=== PATIENT | male | born 1990 | race Hispanic/Latino ===

== ENCOUNTER 2025-02-12 04:10 | Inpatient (IN) | payer SELFPAY ==
[~2025-02-12] VITALS: Ht 175.3 cm; Wt 84.5 kg
--- NOTE | 2025-02-12 04:41 | NUR ---
COULD NOT PROVIDE A URINE AT THIS TIME.
[2025-02-12 04:45] LABS: IMMATURE GRANULOCYTE ABSOLUTE 0.06 K/uL (0-1); NUCLEATED RED BLOOD CELLS 0.0 % (0.0-0.19); PLATELET COUNT (AUTO) 411 K/uL (130-400); RED BLOOD CELL COUNT(AUTO) 6.22 MIL/uL (4.50-6.20); RED CELL DISTRIBUTION WIDTH 12.9 % (11.0-15.5); WHITE BLOOD COUNT (AUTO) 13.2 K/uL (4.8-10.8)
[2025-02-12] MEDS: 0.9%NACL 1000ML 1,000 ML IV ONE ×2 (04:51→06:18)
[2025-02-12] MEDS: FAMOTIDINE 20MG VIAL IV ONE (05:05)
[2025-02-12 05:09] LABS: ASPARTATE AMINOTRANSFERASE 27.0 U/L (10-37); CREATININE 2.9 mg/dL (0.5-1.3); GLOMERULAR FILTR. RATE CALC 28.0 mL/min (>90); GLUCOSE,RANDOM 132.0 mg/dL (70-105); SODIUM SERUM 125.0 mmol/L (136-145); TOTAL PROTEIN, SERUM 9.5 g/dL (6.0-8.3)
[2025-02-12 05:20] LABS: CREATINE KINASE, TOTAL 845.0 U/L (21-232); UREA NITROGEN, BLOOD 82.0 mg/dL (7-18)
--- NOTE | 2025-02-12 05:43 | NUR ---
PT CARE ASSUMED AT THIS TIME
--- NOTE | 2025-02-12 05:46 | ERN ---
ED Note History of Present Illness Stated Complaint: CP. N/V Chief Complaint: Chest Pain Time Seen by MD: 04:24 Dictation: This is a 34-year-old male who comes in with 3 day history of severe nausea vomitings. Stated that every time he vomited his chest would hurt. No fever chills or rigors all the symptoms started on Wednesday. No travel but he just came back from working in the [employer]. No other family members are sick no new pets at home. No blood in the stool or emesis Temperature 97.7 pulse 105 respirations 20 blood pressure 139/99 with a pulse oximetry of 99% on room air Allergies: Coded Allergies: No Known Allergies (Unverified Allergy, Unknown, 02/12/25) Home Meds No Active Prescriptions or Reported Meds Past Medical History Past Medical History: No Pertinent History Surgical History: None Family History: Negative Social History: Drugs (Marijuana, amphetamines and cocaine), ETOH RN Note Reviewed/Agreed w/PFSH: Yes Review of System Dictation Constitutional: Negative for fever,chills, and weight loss Eyes: Negative for injury, pain,redness, and discharge ENT: Negative for injury,pain or swelling Cardiovascular: Positive for chest pain, denies palpitations, and edema Respiratory: Negative for shortness of breath, cough, and wheezing, Abdomen/GI: Positive for abdominal pain, nausea, vomiting, denied diarrhea, and constipation Back: Negative for injury and pain : Negative for injury, bleeding and discharge MS/Extremity: Negative for injury and deformity Skin: Negative for rash, and discoloration Neuro: Negative for headache, weakness, numbness, tingling, and seizure Psych: Negative for suicide ideation, homicidal ideation, and hallucinations Initial Vital Sign VS Vital Signs Date Time Temp Pulse Resp B/P (MAP) Pulse Ox O2 Delivery O2 Flow Rate FiO2 02/12/25 04:12 97.7 105 20 139/99 99 Room Air 02/12/25 05:10 0 21 Physical Exam Dictation General: awake, alert, NAD looks sick Head/Face: Normocephalic, atraumatic Eyes: PERRL, EOMI, vision at baseline ENT: oral cavity clear, TMs clear, no signs of infection mucous membranes are dry Neck: Trachea midline, supple, no nuchal rigidity Cardiovascular: RRR, normal S1/S2, No MRGs, no JVD Respiratory: CTAB, no respiratory distress, No rales or wheezes Abdomen: Soft, non-tender, non-distended, normal bowel sounds, no guarding or rebound. Skin: Warm, dry, normal turgor, no rash MS/Extremity: Pulses equal, no cyanosis, neurovascular intact, FROM Neuro: COAx4, GCS 15, strength 5/5, CN 2-12 intact, normal cerebellar exam, normal gait, Psych: Normal behavior, mood, and affect normal Extremities-trace edema without any palpable cords, Homans sign is negative Results (Laboratory/Radiology) Laboratory/Radiology Laboratory Tests Test 02/12/25 04:36 02/12/25 05:41 02/12/25 06:27 White Blood Count 13.2 K/uL (4.8-10.8) H Red Blood Count 6.22 MIL/uL (4.50-6.20) H Hemoglobin 18.5 g/dL (14.0-18.0) H Hematocrit 50.6 % (42-54) Mean Corpuscular Volume 81.4 fL (79-99) Mean Corpuscular Hemoglobin 29.7 pg (27.0-33.0) Mean Corpuscular Hemoglobin Concent 36.6 g/dL (32.0-36.0) H Red Cell Distribution Width 12.9 % (11.0-15.5) Platelet Count 411 K/uL (130-400) H Mean Platelet Volume 10.6 fL (7.5-10.5) H Immature Granulocyte % (Auto) 0.5 % (0-1) Neutrophils (%) (Auto) 77.2 % (40.0-77.0) H Lymphocytes (%) (Auto) 11.4 % (21.0-51.0) L Monocytes (%) (Auto) 10.4 % (3.0-13.0) Eosinophils (%) (Auto) 0.1 % (0.0-8.0) Basophils (%) (Auto) 0.4 % (0.0-5.0) Neutrophils # (Auto) 10.2 K/uL (1.8-7.7) H Lymphocytes # (Auto) 1.5 K/uL (1.0-4.8) Monocytes # (Auto) 1.4 K/uL (0.1-1.0) H Eosinophils # (Auto) 0.01 K/uL (0.00-0.70) Basophils # (Auto) 0.05 K/uL (0.00-0.20) Absolute Immature Granulocyte (auto 0.06 K/uL (0-1) Nucleated Red Blood Cells 0.0 % (0.0-0.19) Red Blood Cell Morphology See comments Sodium Level 125 mmol/L (136-145) L Potassium Level 3.2 mmol/L (3.5-5.1) L Chloride Level 85 mmol/L (101-111) *L Carbon Dioxide Level 22 mmol/L (21-32) Blood Urea Nitrogen 82 mg/dL (7-18) *H Creatinine 2.9 mg/dL (0.5-1.3) H Glomerular Filtration Rate Calc 28 mL/min (>90) Random Glucose 132 mg/dL (70-105) H Total Calcium 9.8 mg/dL (8.5-10.1) Total Bilirubin 2.3 mg/dL (0.2-1.0) H Direct Bilirubin 0.4 mg/dL (0.0-0.3) H Aspartate Amino Transf (AST/SGOT) 27 U/L (10-37) Alanine Aminotransferase (ALT/SGPT) 47 U/L (12-78) Alkaline Phosphatase 97 U/L (50-136) Total Creatine Kinase 845 U/L (21-232) *H Troponin I High Sensitivity 12 ng/L (4-75) Total Protein 9.5 g/dL (6.0-8.3) H Albumin 4.7 g/dL (3.5-5.0) Lipase 156 U/L (16-77) H Urine Color YELLOW (YELLOW) Urine Appearance CLOUDY (CLEAR) H Urine pH 6.0 (5.0-8.0) Urine Specific [place] 1.022 (1.001-1.031) Urine Protein 50 mg/dL (NEGATIVE) H Urine Glucose (UA) NEGATIVE mg/dL (NEGATIVE) Urine Ketones 20 mg/dL (NEGATIVE) H Urine Occult Blood MODERATE (NEGATIVE) H Urine Nitrate NEGATIVE (NEGATIVE) Urine Bilirubin NEGATIVE mg/dL (NEGATIVE) Urine Urobilinogen 0.2 mg/dL (0.2-1.0) Urine Leukocyte Esterase NEGATIVE Renae/uL Urine RBC 2-5 /HPF (0-1) H Urine WBC 11-25 /HPF (0-1) H Urine Squamous Epithelial Cells RARE /HPF (0-2) Urine Bacteria FEW /HPF (None Seen) Urine Hyaline Casts 6-10 /LPF (0-1 /LPF) H Urine Opiates Screen NEGATIVE (NEGATIVE) Urine Barbiturates Screen NEGATIVE (NEGATIVE) Urine Phencyclidine Screen NEGATIVE (NEGATIVE) Urine Amphetamines Screen POSITIVE (NEGATIVE) H Urine Benzodiazepines Screen NEGATIVE (NEGATIVE) Urine Cocaine Screen POSITIVE (NEGATIVE) H Urine Marijuana (THC) Screen POSITIVE (NEGATIVE) H Lactic Acid Level 2.4 mmol/L (0.8-2.5) Labs Reviewed?: Yes EKG Comment: Twelve lead EKG done on 02/12/2025 at 4:17 a.m. showed a heart rate of 84, NC interval 160, QRS 110, QT/QTC 454/537. Impression normal sinus rhythm with a left atrial enlargement, right bundle branch partial, prolonged QT EKG rhythm strip shows a normal sinus rhythm with no acute STT wave changes Interpreted by ER MD Dr. [place] ED Course ED Course Orders Procedure Category Date Status Time Cbc With Differential LAB 02/12/25 Complete 04:22 Basic Metabolic Panel LAB 02/12/25 Complete 04:22 Troponin I High LAB 02/12/25 Complete Sensitivity 04:22 Chest 1vw RAD 02/12/25 Resulted 04:22 12 Lead Ekg Tracing- EKG 02/12/25 Logged Technical 04:22 Drug Screen Urine LAB 02/12/25 Complete 04:25 Urinalysis Profile LAB 02/12/25 Complete 04:25 Creatine Kinase, Total LAB 02/12/25 Complete 04:36 Hepatic Function Panel LAB 02/12/25 Complete 04:36 Lipase LAB 02/12/25 Complete 04:36 Ondansetron 4mg Inj PHA 02/12/25 Complete (Zofran 4mg Inj) 05:00 0.9%Nacl 1000ml (Ns PHA 02/12/25 Complete 1000ml) 05:00 Famotidine 20mg Vial PHA 02/12/25 Complete (Pepcid 20mg Vial) 05:00 Ketorolac PHA 02/12/25 Complete Tromethamine 15mg/Ml 05:00 Influenza Type A & B, LAB 02/12/25 In Process Rapid 05:55 Covid19 (Sars Antigen LAB 02/12/25 In Process Rapid) 05:55 Ct Abdomen/Pelvis W/O CT 02/12/25 Taken Contrast 05:55 Potassium Chloride PHA 02/12/25 Complete 20meq/10ml (Kcl 20meq 06:00 0.9%Nacl 1000ml (Ns PHA 02/12/25 Complete 1000ml) 06:00 Lactic Acid LAB 02/12/25 Complete 05:57 Blood Cult HENRY 02/12/25 Logged 05:57 Zosyn 3.375gm+Ns 50ml PHA 02/12/25 Complete (Zosyn 3.375gm+Ns 06:00 Potassium Chloride PHA 02/12/25 Complete 20meq/100ml ([place] 06:14 Potassium Chloride PHA 02/12/25 In Process 20meq/100ml ([place] 06:30 Culture Urine HENRY 02/12/25 In Process 06:28 Edm Admit Bridge Order ADM 02/12/25 Verified 06:56 Current Medications Medications (Trade) Dose Ordered Sig/Anmol Route PRN Reason Start Time Stop Time Status Last Admin Dose Admin Famotidine (Pepcid 20mg Vial) 20 mg ONCE ONCE IV 02/12/25 05:00 02/12/25 05:01 DC 02/12/25 05:05 Ketorolac Tromethamine (toRADol) 15 mg ONCE ONCE IV 02/12/25 05:00 02/12/25 05:01 DC 02/12/25 05:05 Ondansetron HCl (zoFRAN 4MG INJ) 4 mg ONCE ONCE IVP 02/12/25 05:00 02/12/25 05:01 DC 02/12/25 04:51 Piperacillin Sod/ Tazobactam Sod (Zosyn 3.375gm+NS 50ml) 3.375 gm ONCE ONCE IV 02/12/25 06:00 02/12/25 06:09 DC 02/12/25 06:18 Potassium Chloride 10 meq/ Sodium Chloride 50 ml @ 50 mls/hr PROTOCOL IV 02/12/25 06:00 02/12/25 06:16 DC Potassium Chloride 100 ml @ 50 mls/hr ONCE ONCE IV 02/12/25 06:30 02/12/25 08:29 02/12/25 06:21 Potassium Chloride 100 ml @ As Directed STK-MED ONCE IV 02/12/25 06:14 02/12/25 06:14 DC Sodium Chloride 1,000 ml @ 0 mls/hr ONCE ONCE IV 02/12/25 06:00 02/12/25 06:08 DC 02/12/25 06:18 Sodium Chloride 1,000 ml @ 0 mls/hr Q0M ONCE IV 02/12/25 05:00 02/12/25 05:01 DC 02/12/25 04:51 Vital Signs Date Time Temp Pulse Resp B/P (MAP) Pulse Ox O2 Delivery O2 Flow Rate FiO2 02/12/25 05:52 98.2 73 18 150/96 98 Room Air* 0 21 02/12/25 05:10 72 18 98 Room Air* 0 21 02/12/25 04:12 97.7 105 20 139/99 99 Room Air We will perform diagnostic labs, advanced imaging and administer medications according to the patient's complaint. Once the results are available, will review and personally interpreted the labs to rule out any acute life- threatening emergency the trach require immediate intervention and treatment. I will then re-evaluate the patient after treatment and diagnostic exams have return to determine whether the patient requires any further testing, can safely be discharged home or need further admission to hospital for additional treatment and evaluation. Aggressive hydration initiated antiemetic and symptomatic management until labs are resulted 5:00 a.m. CBC showed a white count of 13.2 hemoglobin 18.5 hematocrit 50 platelets 411 6:00 a.m. BNP 7 showed a sodium of 125 chloride 85 potassium 3.2 bicarb 22 BUN and creatinine are 82 and 2.9. Lipase is 156 and total CK is 845 I had a long discussion with the patient and partner about concern for severe dehydration and acute renal failure with a electrolyte abnormalities and it is unclear if this is early pancreatitis or gastroenteritis. I recommended admission to the hospital and serial monitoring of the renal function. Avoid any further nephrotoxic agents. Taylor cultures and empiric antibiotic to cover intra-abdominal infection for the next 24 hours 6:30 a.m. urine drug screen is positive for amphetamines, cocaine and marijuana 6:50 a.m. patient accepted by , hospitalist attending physician for admission and further management Medical Decision Making MDM Differential diagnosis: Gastroenteritis, pancreatitis, hyperemesis syndrome from marijuana and substance abuse, cholecystitis, enterocolitis, food poisoning Rationale: Tests considered and ordered secondary to shared decision making include: labs, ECG and radiology Previous outside records reviewed: Old ER visits. Risk of complication and/or morbidity or mortality of patient management: None Medications-Per medication reconciliation Need for hospitalization: Patient does meet criteria for hospitalization. Need for emergency major/minor surgery: No There are no social concerns with this patient. Prescription drug management Prescriptions will include symptomatic care Patient's prior external medical records from other ER visits were reviewed by me as indicated. Prior testing and results from previous visits were reviewed. Prior tests were taken into account with medical decision making and resource utilization, independent historian/historians were used to obtain complete medical history. I independently interpreted the test that were performed, results were reviewed by me and considered findings on radiology if ordered. Medical management and examination interpretation discussions were had by me with other qualified healthcare professionals as indicated for the patient's care. Problem List Problem List: (1) Gastroenteritis (2) Severe dehydration (3) Acute renal failure (4) Pancreatitis (5) Hyponatremia (6) Hypokalemia (7) Polysubstance abuse DX & DISP Disposition: Inpatient Decision to Admit Time: 06:10 Departure Impression: Primary Impression: Gastroenteritis Additional Impressions: Severe dehydration, Acute renal failure, Pancreatitis, Hyponatremia, Hypokalemia Condition: Stable Scripts No Active Prescriptions or Reported Meds Additional Instructions: Patient was informed of all the diagnostic labs and procedures conducted in the emergency room today and demonstrated understanding of the results. I personally reviewed and interpreted all the diagnostic exams performed in the ER today. The patient will be admitted to the hospital for further treatment and evaluation. Disposition-admit to facility Condition-stable/guarded Course-uncertain at this time Pain status-decreased Assessment-exam unchanged Admission Certification- I certify that the patients status is appropriate and is based on my best clinical judgment and the patient's condition as documented in the medical records Referrals: SELF,REFERRAL (PCP) JESSIKA MADRID MD Feb 12, 2025 05:46
--- NOTE | 2025-02-12 06:01 | HMCIMG ---
EXAM: CR Chest, 1 view CLINICAL HISTORY: Chest pain. COMPARISON: None provided. FINDINGS: The lungs show no infiltrates or other acute findings. The bilateral CP angles are excluded from the image. No large pleural effusion or pneumothorax. The cardiomediastinal silhouette is within normal limits. No acute osseous abnormality. IMPRESSION: No acute cardiopulmonary process is evident. /[place]
--- NOTE | 2025-02-12 06:10 | NUR ---
PATIENT TAKEN TO CT SCAN AT THIS TIME, FAMILY AT BEDSIDE.
[2025-02-12 06:15] LABS: APPEARANCE,URINE CLOUDY (CLEAR); GLUCOSE, URINE (UA) NEGATIVE (NEGATIVE); LEUKOCYTE ESTERASE ,URINE NEGATIVE Leu/uL (NEGATIVE); NITRATE,URINE NEGATIVE (NEGATIVE); OCCULT BLOOD,URINE MODERATE (NEGATIVE)
[2025-02-12 06:16] LABS: ADD UA MICROSCOPIC YES
[2025-02-12 06:18] LABS: SQUAMOUS EPITHELIAL CELL,UR RARE /HPF (0-2)
[2025-02-12] MEDS: ZOSYN 3.375GM +NS 50ML IV ONE (06:18)
[2025-02-12 06:23] LABS: AMPHET/METH SCREEN,URINE POSITIVE (NEGATIVE); BARBITURATE SCREEN, URINE NEGATIVE (NEGATIVE); CANNABINOID SCREEN,URINE POSITIVE (NEGATIVE); COCAINE SCREEN,URINE POSITIVE (NEGATIVE)
[2025-02-12 07:01] LABS: COVID19 (SARS ANTIGEN RAPID) PRESUMPTIVE NEGATIVE (NEGATIVE); INFLUENZA TYPE A Negative For Type A (NEGATIVE); INFLUENZA TYPE B Negative For Type B (NEGATIVE)
--- NOTE | 2025-02-12 07:05 | NUR ---
CARE TRANSFERRED TO CINDY CUELLO
--- NOTE | 2025-02-12 07:18 | EKG ---
[facility] Test Date: 2025-02-12 Test Time: 04:17:12 Pat Name: LATONYA GALLEGOS Department: [facility] Room: 313 Gender: M [employer] Ad[employer]: [id number] : 1990 Requested By: JESSIKA MADRID Order Number: [id number] Reading MD: Efrain Mejia Measurements Intervals [place] Rate: 84 P: 61 OK: 160 QRS: 64 QRSD: 110 T: 43 QT: 454 QTc: 537 Interpretive Statements Sinus rhythm LAE, consider biatrial enlargement Consider anterior infarct Prolonged QT interval No previous ECG available for comparison Electronically Signed On 02-13-2025 07:26:02 CDT by Efrain Mejia Please click the below link to view image of tracing.
--- NOTE | 2025-02-12 07:19 | HMCIMG ---
EXAM: CT Abdomen and Pelvis without V contrast CLINICAL HISTORY: Pain. TECHNIQUE: Thin collimated axial CT images of the abdomen and pelvis were obtained with sagittal and coronal reformatted images also submitted. CT scan is done according to ALARA (As Low As Reasonably Achievable). CONTRAST: None COMPARISON: None. FINDINGS: Unremarkable visualized lung parenchyma. No focal abnormality within the liver,pancreas, spleen, adrenals, or kidneys. Mildly distended gallbladder measuring 7.3 cm and 4.2 cm in the anterior posterior dimension. No wall thickening or radiopaque calculus within. Mild hiatus hernia. Moderate fecal residue in the large bowel loops. There is no obvious bowel wall thickening. Bowel loops are normal in caliber without evidence of obstruction or ileus. The appendix is normal. There is no abnormality within the urinary bladder. Unremarkable reproductive organs. Abdominal and pelvic vessels are patent. No lymphadenopathy. No free fluid. There is no acute osseous abnormality. IMPRESSIONS: Nonspecific distention of the gallbladder. Right upper quadrant ultrasound recommended for further evaluation. /[place]
[2025-02-12] MEDS ORDERED: LACTULOSE 20 GM/30 ML UDCUP PO PRN (07:30)
[2025-02-12] MEDS ORDERED: PHARMACY COMMUNICATION MISC SCH (08:00)
[2025-02-12 08:26] LABS: INR 1.02 (0.85-1.15)
[2025-02-12 08:54] LABS: CREATININE 2.5 mg/dL (0.5-1.3); GLOMERULAR FILTR. RATE CALC 34.0 mL/min (>90); GLUCOSE,RANDOM 109.0 mg/dL (70-105); LDL DIRECT 110.0 mg/dL (0-99); SODIUM SERUM 129.0 mmol/L (136-145)
[2025-02-12 08:59] LABS: UREA NITROGEN, BLOOD 77.0 mg/dL (7-18)
[2025-02-12] MEDS: SODIUM CHLORIDE 3% 500 ML IV ONE (09:43)
[2025-02-12] MEDS: 0.9%NACL 1000ML 1,000 ML IV SCH ×2 (09:47→20:35)
[2025-02-12] MEDS: 0.9%NACL 1000ML 2,000 ML IV ONE (09:47)
--- NOTE | 2025-02-12 09:52 | HMCIMG ---
EXAM: US Abdomen, Right Upper Quadrant. CLINICAL HISTORY: HYPERBILIRUBINEMIA TECHNIQUE: Right upper quadrant sonography performed with image documentation. COMPARISON: None provided. FINDINGS: The liver is unremarkable. Gallbladder: The gallbladder is distended and contains sludge. No gallstones are seen. The gallbladder wall measures 0.3 cm and is not thickened. No pericholecystic fluid noted. Common Bile Duct (CBD): The CBD measures 0.32 cm, within normal limits. No biliary ductal dilatation or choledocholithiasis. Pancreas: Pancreas is visualized and appears within normal limits. No masses or cysts seen. Right Kidney: The right kidney measures 12 x 5 x 6 cm, within normal limits. Corticomedullary differentiation is preserved. No hydronephrosis, masses, or calculi identified. IMPRESSION: Gallbladder sludge. No sonographic evidence of acute cholecystitis. /[place]
--- NOTE | 2025-02-12 10:12 | HP ---
[facility] HISTORY [facility] PHYSICAL Date of Service: Feb 12, 2025 Time of Service: 09:34 HISTORY OF PRESENT ILLNESS: 34 year old male with no significant past medical history presented to ER with complaints of intractable vomiting for past 5days. 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 He denies any accidental spillage of chemicals or exposure to unknown agent. Since ( 5days ago), he has been experiencing severe vomiting, nonbloody, not associated with food intake and not preceded by nausea. He also experiences shortness of breath associated with physical activity and intermittent headache. Vomiting is associated with central chest pain described as burning in nature, 8/10 in intensity. He currently denies shortness of breath and central chest pain. He also denies abdominal pain, seizures, change in mental status, swelling of extremities, dysuria, oliguria, changes in bowel or bladder habits. At the time of presentation, he is alert and oriented. Vitals were temperature 97.7, pulse rate 105, respiratory rate 20 per minute, BP 139/99, SpO2 99% room air Remarkable for WBC 99483, hemoglobin 18.5, hematocrit 50.6, platelet count 411, 25, potassium 3.2, carbon dioxide 22, chloride 85, BUN , creatinine 2.9, GFR 2 8, bilirubin 2.3, CK 845, lipase 156. Chest x-ray showed prominent bilateral interstitial markings. CT abdomen pelvis remarkable for enlarged gallbladder. Abdomen also shows distended gallbladder. Was treated with Zosyn and2 L IV NS bolus dose in the ER Patient is admitted for further evaluation and management of sepsis, acute dehydration causing acute kidney failure, acute hyponatremia. REVIEW OF SYSTEMS CONSTITUTIONAL: Denies fevers, chills, or night sweats. No unintentional weight loss reported. NEUROLOGICAL: Headache present Denies motor weakness, sensory deficit, vertigo/spinning sensation, gait abnormalities, or tremors. ENT: No hearing loss, otalgia, otorrhea, rhinitis, rhinorrhea, hoarseness, or sore throat. CARDIOVASCULAR: Dyspnea on exertion present Denies any exertional angina,, orthopnea, paroxysmal nocturnal dyspnea, palpitations, life-threatening arrhythmias, claudication. PULMONARY: SOB present Denies cough, phlegm/sputum, hemoptysis, pleuritic chest pain. SLEEP: Patient states that he has difficulty to sleep since GASTROINTESTINAL: Denies any type of dysphagia to either liquids or solids. Denies nausea, early satiety, abdominal pain, diarrhea, constipation, or changes in stool consistency or caliber. Denies coffee-ground emesis, hematemesis, hematochezia, or melanotic stools. Positive for vomiting, last bowel movement5 days back GENITOURINARY: Denies frequency, urgency, nocturia, hematuria or incontinence (Storage/Irritative symptoms.) ENDOCRINOLOGIC: Denies polyuria, polydipsia, polyphagia or heat/cold intolerances. HEMATOLOGIC: Denies thrombophilia/previous clots, or coagulopathy/bleeding disorders. ONCOLOGIC: Denies personal history of malignancy. DERMATOLOGIC: Denies rashes or pruritus. PAST MEDICAL HISTORY: none PAST SURGICAL HISTORY: none PAST SOCIAL HISTORY: patiet admits to drinking 12 packs of soto colada every 2 weeks , admits to vaping, denies drug use . FAMILY HISTORY: Non contributory Coded Allergies: No Known Allergies (Unverified Allergy, Unknown, 02/12/25) PHYSICAL EXAM GENERAL APPEARANCE: The patient is awake, alert, and oriented, in no acute cardiopulmonary distress. NEUROLOGICAL: Cranial nerves II-XII grossly intact. Motor is 5/5 in bilateral upper and lower extremities proximal to distal. No sensory deficits. HEENT: Face is symmetric. Pupils are equal and reactive. Extraocular movements are intact. NECK: Supple. No JVD. No thyromegaly. No submental, submandibular, pre- /postauricular, occipital or supraclavicular lymphadenopathy. LUNGS: Absence of any rales, rhonchi or any wheezing. CARDIOVASCULAR: Regular. S1 and S2 normal. ABDOMEN: Soft, nontender, and nondistended. There is no rebound, voluntary guarding, or rigidity. EXTREMITIES: Non-edematous and not cyanotic. No clubbing. Good capillary refill. SKIN: No skin breakdown. Vital Sign (Last 24 Hours) 02/12/25 08:14 Temp 98.2 Pulse 71 Resp 16 B/P (MAP) 136/87 Pulse Ox 100 O2 Delivery Room Air* O2 Flow Rate 0 FiO2 21 LABS: Laboratory: Test 02/12/25 08:20 02/12/25 06:27 02/12/25 05:41 02/12/25 04:36 Range/Units Sodium Level 129 L 136-145 mmol/L Potassium Level 4.0 3.5-5.1 mmol/L Chloride Level 92 L 101-111 mmol/L Carbon Dioxide Level 28 21-32 mmol/L Blood Urea Nitrogen 77 *H 7-18 mg/dL Creatinine 2.5 H 0.5-1.3 mg/dL Glomerular Filtration Rate Calc 34 >90 mL/min Random Glucose 109 H 70-105 mg/dL Lactic Acid Level 1.7 0.8-2.5 mmol/L Total Calcium 8.8 8.5-10.1 mg/dL Triglycerides Level 129 30-200 mg/dL Cholesterol Level 191 <200 mg/dL LDL Cholesterol 110 H 0-99 mg/dL HDL Cholesterol 46 29-71 mg/dL Lipase 145 H 16-77 U/L Influenza Type A Antigen Negative For Type A NEGATIVE Influenza Type B Antigen Negative For Type B NEGATIVE SARS-CoV-2 Antigen (Rapid) PRESUMPTIVE NEGATIVE NEGATIVE Urine Color YELLOW YELLOW Urine Appearance CLOUDY H CLEAR Urine pH 6.0 5.0-8.0 Urine Specific [place] 1.022 1.001-1.031 Urine Protein 50 H NEGATIVE mg/dL Urine Glucose (UA) NEGATIVE NEGATIVE mg/dL Urine Ketones 20 H NEGATIVE mg/dL Urine Occult Blood MODERATE H NEGATIVE Urine Nitrate NEGATIVE NEGATIVE Urine Bilirubin NEGATIVE NEGATIVE mg/dL Urine Urobilinogen 0.2 0.2-1.0 mg/dL Urine Leukocyte Esterase NEGATIVE NEGATIVE Renae/uL Urine RBC 2-5 H 0-1 /HPF Urine WBC 11-25 H 0-1 /HPF Urine Squamous Epithelial Cells RARE 0-2 /HPF Urine Bacteria FEW None Seen /HPF Urine Hyaline Casts 6-10 H 0-1 /LPF /LPF Urine Random Creatinine 245.46 H 30-135 mg/dL Urine Random Sodium < 13 L 40-220 mmol/l Urine Random Potassium 35 25-125 mmol/L Urine Random Chloride 27 L 110-250 mmol/L Urine Opiates Screen NEGATIVE NEGATIVE Urine Barbiturates Screen NEGATIVE NEGATIVE Urine Phencyclidine Screen NEGATIVE NEGATIVE Urine Amphetamines Screen POSITIVE H NEGATIVE Urine Benzodiazepines Screen NEGATIVE NEGATIVE Urine Cocaine Screen POSITIVE H NEGATIVE Urine Marijuana (THC) Screen POSITIVE H NEGATIVE White Blood Count 13.2 H 4.8-10.8 K/uL Red Blood Count 6.22 H 4.50-6.20 MIL/uL Hemoglobin 18.5 H 14.0-18.0 g/dL Hematocrit 50.6 42-54 % Mean Corpuscular Volume 81.4 79-99 fL Mean Corpuscular Hemoglobin 29.7 27.0-33.0 pg Mean Corpuscular Hemoglobin Concent 36.6 H 32.0-36.0 g/dL Red Cell Distribution Width 12.9 11.0-15.5 % Platelet Count 411 H 130-400 K/uL Mean Platelet Volume 10.6 H 7.5-10.5 fL Immature Granulocyte % (Auto) 0.5 0-1 % Neutrophils (%) (Auto) 77.2 H 40.0-77.0 % Lymphocytes (%) (Auto) 11.4 L 21.0-51.0 % Monocytes (%) (Auto) 10.4 3.0-13.0 % Eosinophils (%) (Auto) 0.1 0.0-8.0 % Basophils (%) (Auto) 0.4 0.0-5.0 % Neutrophils # (Auto) 10.2 H 1.8-7.7 K/uL Lymphocytes # (Auto) 1.5 1.0-4.8 K/uL Monocytes # (Auto) 1.4 H 0.1-1.0 K/uL Eosinophils # (Auto) 0.01 0.00-0.70 K/uL Basophils # (Auto) 0.05 0.00-0.20 K/uL Absolute Immature Granulocyte (auto 0.06 0-1 K/uL Nucleated Red Blood Cells 0.0 0.0-0.19 % Red Blood Cell Morphology See comments Total Bilirubin 2.3 H 0.2-1.0 mg/dL Direct Bilirubin 0.4 H 0.0-0.3 mg/dL Aspartate Amino Transf (AST/SGOT) 27 10-37 U/L Alanine Aminotransferase (ALT/SGPT) 47 12-78 U/L Alkaline Phosphatase 97 50-136 U/L Total Creatine Kinase 845 *H 21-232 U/L Troponin I High Sensitivity 12 4-75 ng/L Total Protein 9.5 H 6.0-8.3 g/dL Albumin 4.7 3.5-5.0 g/dL Test 02/12/25 04:31 Range/Units Prothrombin Time 10.8 9.6-11.6 SEC Prothromb Time International Ratio 1.02 0.85-1.15 Activated Partial Thromboplast Time 25.8 L 26.3-35.5 SEC Hemoglobin A1c 5.0 4.0-6.0 % Estimated Average Glucose (eAG) 97 70-126 mg/dL B-Type Natriuretic Peptide < 5 0-100 pg/mL Amylase Level 107 25-115 U/L Thyroid Stimulating Hormone (TSH) 1.63 0.36-3.74 uIU/mL Current Medications Medications (Trade) Dose Ordered Sig/Anmol Route PRN Reason Start Time Stop Time Status Last Admin Dose Admin Acetaminophen (TYLenol 325MG TAB) 650 mg Q4H PRN PO MILD PAIN (1-3) 02/12/25 07:30 03/14/25 07:29 Acetaminophen (TYLenol 325MG TAB) 650 mg Q6H PRN PO TEMPERATURE GREATER THAN 101.5 02/12/25 07:30 03/14/25 07:29 Lactulose (Constulose 20gm/ 30ml Udcup) 20 gm BID PRN PO CONSTIPATION 02/12/25 07:30 03/14/25 07:29 Ondansetron HCl (zoFRAN 4MG INJ) 4 mg Q6H PRN IV NAUSEA/VOMITING 02/12/25 07:30 02/12/25 08:05 DC Ondansetron HCl (zoFRAN 4MG INJ) 4 mg Q8H PRN IVP NAUSEA/VOMITING 02/12/25 08:00 03/14/25 07:59 Pantoprazole Sodium (PROTonix 40MG INJ) 40 mg BID IVP 02/12/25 09:00 03/14/25 08:59 Pharmacy Profile Note (Pharmacy Communication) 1 each ONCE MISC 02/12/25 08:00 02/12/25 08:09 DC Piperacillin Sod/ Tazobactam Sod 50 ml @ 12.5 mls/hr Q8H IV 02/12/25 14:00 02/22/25 13:59 Potassium Chloride 10 meq/ Sodium Chloride 50 ml @ 50 mls/hr PROTOCOL IV 02/12/25 06:00 02/12/25 06:16 DC Sodium Chloride 1,000 ml @ 200 mls/hr Q5H IV 02/12/25 09:30 03/14/25 09:29 UNV DIAGNOSTICS / RADIOLOGY: [ ] ASSESSMENT: Sepsis, POA. Source -UTI Acute urinary tract infection, POA Mild rhabdomyolysis, POA Lactic acidosis, poa High aniongap metabolic acidosis with metabolic alkalosis, POA Acute renal failure, POA Acute hyponatremia, POA Hyperbilirubinemia, POA to rule out acute cholecystitis Elevated lipase to rule out acute pancreatitis PLAN: Patient is admitted to [facility] NEURO: Patient admitted with acute hyponatremia Neurochecks q.4 H Bedrest for today till the sodium is corrected Minimize central acting medications as possible. Fall Precautions. Well lighted room through the day and minimize interruptions through the night to prevent acute delirium. PULMONARY: Patient complains of exertional shortness of breath Chest x-ray shows prominent interstitial markings SpO2 99% on room air Supplemental 02 as needed Titrate Fio2 to keep Spo2 > or = 90% DuoNebs and CPT as needed CARDIOVASCULAR: Patient complains of shortness of breath on exertion Patient complains of central chest pain, burning type 8/10 in intensity probably associated to intractable vomiting Troponins normal EKG showed sinus rhythm with ventricular rate of 105 beats per minute, no ST segment elevation or depression, mild QT prolongation GI & NUTRITION: Keep NPO for time being Patient with hyperbilirubinemia pending ultrasound abdomen report We will consult surgeon if needed GI consult pending Aspirations precautions Prokinetic agents and laxatives as needed KIDNEYS & ELECTROLYTES: Patient with acute kidney failure, uremia GFR28 at the time of presentation Acute high anion gap metabolic acidosis with metabolic alkalosis present CK elevated-CK level will be trended Patient will be treated with IV normal saline with cautious monitoring of sodium levels Strict monitoring of intake and output Daily weights Avoid nephrotoxic agents Monitor electrolytes and replace as needed Goal urine output of 30mL/hr or 0.5mL/kg/hr Pending nephrology consult ENDOCRINE: a1c 5 Maintain blood glucose between 100-180 at all times. Insulin sliding scale for blood glucose management INFECTIOUS DISEASE: Patient admitted with sepsis and urinary tract infection Trend temperature. Taylor-culture if febrile. Lactic acid 2.4- We will trend lactic acid Micro: [Blood cx-pending, urine culture pending] Antibiotics: [Zosyn] HEMATOLOGY & COAGULATION: HB 18.5, hematocrit 50.6-probably secondary to hemoconcentration Monitor H&H. Keep Hgb > 7 Transfuse 1 unit of PRBC for Hgb < 7 Transfuse 1 pack of platelets of platelets < 20, 000 Watch for any signs and symptoms of bleeding SKIN: Pressure ulcer prevention per facility protocol PREVENTATIVE : DVT prophylaxis : SCDs (DVT and PE prevention) GI prophylaxis: Protonix (ulcer prevention) Urinary catheter daily assessment done: Voids (CAUTI prevention) Intravenous access daily assessment done: Peripheral IVs (CLASBI prevention) NPO for now All labs will be repeated in the morning Code Status: Full Resuscitation Disposition: [PCCU] Patient was seen and case discussed with tierra JARRETT. Plan of care was discussed and agreed upon. Plan of care was discussed with the patient and his who was at the bedside ADVANCED CARE PLANNING: WHICH OF THE FOLLOWING WERE DISCUSSED: HOSPICE CARE: YES __ NO _X_ THERAPEUTIC OPTIONS: YES _X_ NO __ ADVANCE DIRECTIVES: YES _X_ NO __ DISCUSSED WITH WHO?: PATIENT VOLUNTARY NATURE OF THIS SERVICE WAS EXPLAINED TO THE PATIENT? YES _X_ NO __ AMOUNT OF TIME SPENT: 20 MINUTES ATTESTATION BY PHYSICIAN I have seen and examined the patient. I reviewed the documentation, medical decision making, and treatment plan as noted by the resident provider above. I agree with the findings and plan of care. JAYESH KING MD, MD Feb 12, 2025 10:11
[2025-02-12 12:22] LABS: CREATININE 2.2 mg/dL (0.5-1.3); GLOMERULAR FILTR. RATE CALC 40.0 mL/min (>90); GLUCOSE,RANDOM 98.0 mg/dL (70-105); SODIUM SERUM 132.0 mmol/L (136-145); UREA NITROGEN, BLOOD 68.0 mg/dL (7-18)
[2025-02-12 12:28] LABS: CREATINE KINASE, TOTAL 481.0 U/L (21-232)
[2025-02-12] MEDS: ZOSYN 3.375GM+NS 50ML 50 ML IV SCH (13:37)
[2025-02-12 17:00] VITALS: O2SAT 99
--- NOTE | 2025-02-12 19:16 | NUR ---
GI CONSULT AND NEPHROLOGY CONSULT PAGED, HAVE NOT RECEIVED CALL BACK.
[2025-02-12 20:01] VITALS: BP_SYST 134; BP_SYST 155; BP_DIAS 54; BP_DIAS 98; PULSE 71; RESP 17; RESP 19; TEMP 97.7; TEMP 98.5
[2025-02-12] MEDS: DOXYCYCLINE HYCLATE 100 MG TABLET PO SCH (20:42)
[2025-02-12 22:58] VITALS: BP 148/89; PULSE 73; RESP 17; TEMP 98.4
[2025-02-12 23:20] VITALS: BP 156/99; PULSE 69; RESP 18; TEMP 98.2
--- NOTE | 2025-02-13 02:38 | CONS ---
REFERRING PHYSICIAN: Clovis Ruiz MD REASON FOR CONSULTATION: Renal failure, electrolyte abnormalities, and volume depletion. HISTORY OF PRESENT ILLNESS: A 34-year-old male with essentially no past history. The patient does work in the ____. The patient presents to the hospital with 2- to 3-day history of poor intake, generalized fatigue. The patient's laboratory values reveal significant renal dysfunction with an elevated BUN and creatinine as well as elevated CPK. The patient was started on IV hydration and the patient is being seen in consultation for all the above. PAST MEDICAL HISTORY: Essentially none. SOCIAL HISTORY: No alcohol or tobacco use. FAMILY HISTORY: There is no renal disease in the family. The patient's urine drug screen positive for cocaine and marijuana. FAMILY HISTORY: There is no renal disease in the family. REVIEW OF SYSTEMS: CONSTITUTIONAL: He is feeling weak and tired. HEENT: No change in vision. No change in hearing. CARDIOVASCULAR: There is no current chest pains or palpitation. PULMONARY: No shortness of breath. GASTROINTESTINAL: As described above. MUSCULOSKELETAL: Complains of weakness. NEUROLOGIC: No seizures or focal deficit. PSYCHIATRIC: No history of hallucinations or psychosis. ENDOCRINE: Denies any diabetes mellitus or thyroid disease. HEME: No history of anemia or malignancy. PHYSICAL EXAMINATION: VITAL SIGNS: Blood pressure is 136/87, pulse 70s, afebrile. GENERAL: Chronically ill male, young, lying in bed on the medical floor. HEENT: Head is atraumatic. Pupils are equal, round, reactive to light. Oropharynx is without exudate. Nares clear. NECK: There is no JVP. There is no thyromegaly, no mass. CARDIOVASCULAR: Regular. There is no S3 or S4 gallop. LUNGS: Coarse with equal thoracic movement. ABDOMEN: Soft, nondistended, nontender. EXTREMITIES: Reveal no clubbing, no cyanosis. NEUROLOGICAL: The patient is awake, alert. The patient is oriented. SKIN: Reveals no rash or nodules. BACK: There is no CVA tenderness, no back deformities. LABORATORY DATA: Urine drug screen is positive for cocaine and marijuana. Sodium is 129, potassium is 4, BUN 77, creatinine is 2.5. Hemoglobin 8, hematocrit 50, white cell count is 13,000. IMPRESSION: * Acute renal failure. * Rhabdomyolysis. * Drug abuse. * Volume depletion. PLAN: The patient presents with significant renal dysfunction in the face of rhabdomyolysis and volume depletion. He will be bolused 3 liters of normal saline. We will continue with the saline at 200 mL an hour. We will continue to monitor the chemistries closely. All labs can be repeated in the a.m. The patient and family with multiple questions, all of which were all answered. TID: [id number] RECEIPT: [id number]
[2025-02-13 04:00] VITALS: BP 133/91; PULSE 69; RESP 18; TEMP 98.4
[2025-02-13 05:00] LABS: IMMATURE GRANULOCYTE ABSOLUTE 0.02 K/uL (0-1); NUCLEATED RED BLOOD CELLS 0.0 % (0.0-0.19); PLATELET COUNT (AUTO) 217 K/uL (130-400); RED BLOOD CELL COUNT(AUTO) 4.61 MIL/uL (4.50-6.20); RED CELL DISTRIBUTION WIDTH 13.0 % (11.0-15.5); WHITE BLOOD COUNT (AUTO) 6.3 K/uL (4.8-10.8)
[2025-02-13 05:12] LABS: ASPARTATE AMINOTRANSFERASE 17.0 U/L (10-37); CREATINE KINASE, TOTAL 284.0 U/L (21-232); CREATININE 1.5 mg/dL (0.5-1.3); GLOMERULAR FILTR. RATE CALC 63.0 mL/min (>90); GLUCOSE,RANDOM 89.0 mg/dL (70-105); PHOSPHORUS 2.3 mg/dL (2.5-4.9); SODIUM SERUM 138.0 mmol/L (136-145); TOTAL PROTEIN, SERUM 6.2 g/dL (6.0-8.3); UREA NITROGEN, BLOOD 43.0 mg/dL (7-18)
[2025-02-13 07:53] VITALS: BP 142/84; PULSE 66; RESP 18; TEMP 98.5
--- NOTE | 2025-02-13 09:10 | PN ---
SUBJECTIVE: A 34-year-old male initially presented to the hospital, found to have acute renal failure. The patient with rhabdomyolysis. He was started on IV hydration and the patient's creatinine has greatly improved. The patient is tolerating some amount of a diet and he is being seen as a followup visit for all of the above. REVIEW OF SYSTEMS: GENERAL: He is feeling improved. HEENT: No change in vision. No change in hearing. CARDIOVASCULAR: No current chest pains or palpitations. PULMONARY: No shortness of breath. GASTROINTESTINAL: He has been started on a diet. MUSCULOSKELETAL: Complains of weakness. PHYSICAL EXAMINATION: VITAL SIGNS: Blood pressure 142/84, pulse 60s, afebrile. GENERAL: Chronically ill male, young, lying in bed on the medical floor. HEENT: Head is atraumatic. Pupils are equal, round and reactive to light. Oropharynx is without exudate. Nares are clear. NECK: There is no JVP. There is no thyromegaly, no mass. CARDIOVASCULAR: Regular. There is no S3 or S4 gallop. LUNGS: Coarse with equal thoracic movement. ABDOMEN: Soft, nondistended and nontender. EXTREMITIES: Reveal no clubbing, no cyanosis. NEUROLOGICAL: He is awake and alert. LABORATORY DATA: Sodium 138, potassium 3.5, BUN 43, creatinine 1.5. Hemoglobin 13, hematocrit 38. IMPRESSION: * Acute renal failure. * Rhabdomyolysis. * Drug abuse. * Electrolyte abnormalities. PLAN: The patient remains on the IV hydration. The patient's electrolytes will all be aggressively repleted. The patient has been started on a diet. We will continue to follow closely. Once the patient is discharged, he could follow up in the [facility]. TID: [id number] RECEIPT: [id number]
--- NOTE | 2025-02-13 11:14 | NUR ---
DCP:HOME Pt currently lives at home with his Roxana Mathew. pt does not have any DME, home health, or provider services. Pt states that he is able to complete ADLs independently. Pt does not have PCP, SW provided pt with community resources. At [place] pt will want to go home and family can assist with transportation. Addendum: 02/13/25 at 1117 by RIGOBERTO BLUE SS Amended: Links added.
[2025-02-13 11:43] VITALS: BP 157/94; PULSE 66; RESP 19; TEMP 98
[2025-02-13 15:58] VITALS: BP 142/82; PULSE 65; RESP 18; TEMP 98
--- NOTE | 2025-02-13 16:49 | DS ---
Discharge Summary Hospital Course Summary: Patient information: Name: Latonya Johnson Date of : 1990 Admission date: 02/12/2025 Attending physician: Dr. Ruiz Admitting diagnosis: Sepsis, POA. Source -UTI Acute urinary tract infection, POA Mild rhabdomyolysis, POA Lactic acidosis, poa High aniongap metabolic acidosis with metabolic alkalosis, POA Acute renal failure, POA Acute hyponatremia, POA Hyperbilirubinemia, POA to rule out acute cholecystitis Elevated lipase to rule out acute pancreatitis Course in hospital: 34 year old male with no significant past medical history presented to ER with complaints of intractable vomiting for past 5days. 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 He denies any accidental spillage of chemicals or exposure to unknown agent. Since (5days ago), he experienced severe vomiting, nonbloody, not associated with food intake and not preceded by nausea. He also experiences shortness of breath associated with physical activity and intermittent headache. Vomiting is associated with central chest pain described as burning in nature, 8/10 in intensity. He currently denies shortness of breath and central chest pain. He also denies abdominal pain, seizures, change in mental status, swelling of extremities, dysuria, oliguria, changes in bowel or bladder habits. At the time of presentation, he is alert and oriented. Vitals were temperature 97.7, pulse rate 105, respiratory rate 20 per minute, BP 139/99, SpO2 99% room air. Remarkable for WBC 99978, hemoglobin 18.5, hematocrit 50.6, platelet count 411, 25, potassium 3.2, carbon dioxide 22, chloride 85, BUN , creatinine 2.9, GFR 2 8, bilirubin 2.3, CK 845, lipase 156. Chest x-ray showed prominent bilateral interstitial markings. CT abdomen pelvis remarkable for enlarged gallbladder. Abdomen also shows distended gallbladder. Was treated with Zosyn and2 L IV NS bolus dose in the ER. Patient was admitted for further evaluation and management of sepsis, acute dehydration causing acute kidney failure, acute hyponatremia. On 02/13/2025 (today) he has no symptoms, his examination is unremarkable and the vitals are in the normal range. His labs are in the normal range except for Hb is 13.6, HCT is 38.8, BUN is 43, creatinine is 1.5, phosphorus is 2.3, creatine kinase is 284, lipase is 267. His uretheral swab is negative for chlamydia and gonorrhea. His urine culture is negative. Nephrology was consulted and they advised fluid replacement with NS. He is medically stable and got clearance from nephrology. So we are discharging him. Picking Supervisor(s): CONSULTATION REPORT Name: LATONYA JOHNSON Acct: [id number] MR: [id number] : 1990 Admit Date: 02/12/25 JORDAN BENNETT MD [facility] [address] [place] [id number] REFERRING PHYSICIAN: Clovis Ruiz MD REASON FOR CONSULTATION: Renal failure, electrolyte abnormalities, and volume depletion. HISTORY OF PRESENT ILLNESS: A 34-year-old male with essentially no past history. The patient does work in the ____. The patient presents to the hospital with 2- to 3-day history of poor intake, generalized fatigue. The patient's laboratory values reveal significant renal dysfunction with an elevated BUN and creatinine as well as elevated CPK. The patient was started on IV hydration and the patient is being seen in consultation for all the above. PAST MEDICAL HISTORY: Essentially none. SOCIAL HISTORY: No alcohol or tobacco use. FAMILY HISTORY: There is no renal disease in the family. The patient's urine drug screen positive for cocaine and marijuana. FAMILY HISTORY: There is no renal disease in the family. REVIEW OF SYSTEMS: CONSTITUTIONAL: He is feeling weak and tired. HEENT: No change in vision. No change in hearing. CARDIOVASCULAR: There is no current chest pains or palpitation. PULMONARY: No shortness of breath. GASTROINTESTINAL: As described above. MUSCULOSKELETAL: Complains of weakness. NEUROLOGIC: No seizures or focal deficit. PSYCHIATRIC: No history of hallucinations or psychosis. ENDOCRINE: Denies any diabetes mellitus or thyroid disease. HEME: No history of anemia or malignancy. PHYSICAL EXAMINATION: VITAL SIGNS: Blood pressure is 136/87, pulse 70s, afebrile. GENERAL: Chronically ill male, young, lying in bed on the medical floor. HEENT: Head is atraumatic. Pupils are equal, round, reactive to light. Oropharynx is without exudate. Nares clear. NECK: There is no JVP. There is no thyromegaly, no mass. CARDIOVASCULAR: Regular. There is no S3 or S4 gallop. LUNGS: Coarse with equal thoracic movement. ABDOMEN: Soft, nondistended, nontender. EXTREMITIES: Reveal no clubbing, no cyanosis. NEUROLOGICAL: The patient is awake, alert. The patient is oriented. SKIN: Reveals no rash or nodules. BACK: There is no CVA tenderness, no back deformities. LABORATORY DATA: Urine drug screen is positive for cocaine and marijuana. Sodium is 129, potassium is 4, BUN 77, creatinine is 2.5. Hemoglobin 8, hematocrit 50, white cell count is 13,000. IMPRESSION: * Acute renal failure. * Rhabdomyolysis. * Drug abuse. * Volume depletion. PLAN: The patient presents with significant renal dysfunction in the face of rhabdomyolysis and volume depletion. He will be bolused 3 liters of normal saline. We will continue with the saline at 200 mL an hour. We will continue to monitor the chemistries closely. All labs can be repeated in the a.m. The patient and family with multiple questions, all of which were all answered. TID: [id number] RECEIPT: [id number] Electronically Signed by: Electronically Co-Signed by: Procedure(s): [place] [address] [place] [address] [id number] IMAGING REPORT Signed PATIENT: LATONYA JOHNSON MR#: [id number] : 1990 SEX: M AGE: 34 LOCATION: [facility] ORDER 2 STATUS: REG ER REPORT#: [id number] SERVICE 1 REASON: CP ORDERING PHYSICIAN: JESSIKA MADRID MD PROCEDURE: CXR1VW - CHEST 1VW EXAM: CR Chest, 1 view CLINICAL HISTORY: Chest pain. COMPARISON: None provided. FINDINGS: The lungs show no infiltrates or other acute findings. The bilateral CP angles are excluded from the image. No large pleural effusion or pneumothorax. The cardiomediastinal silhouette is within normal limits. No acute osseous abnormality. IMPRESSION: No acute cardiopulmonary process is evident. /[place] DICTATED BY: ARUNA NEVAREZ Jr., MD DATE: 02/12/25699 ELECTRONICALLY SIGNED BY: ARUNA NEVAREZ Jr., MD DATE: 02/12/25699 [place] [id number] IMAGING REPORT Signed PATIENT: LATONYA JOHNSON MR#: [id number] : 1990 SEX: M AGE: 34 LOCATION: [facility] ORDER 6 STATUS: REG REPORT#: [id number] SERVICE REASON: nause avomitings, diarrhea , acute renal failure ORDERING PHYSICIAN: JESSIKA MADRID MD PROCEDURE: ABD PEL WO - CT ABDOMEN/PELVIS W/O CONTRAST EXAM: CT Abdomen and Pelvis without V contrast CLINICAL HISTORY: Pain. TECHNIQUE: Thin collimated axial CT images of the abdomen and pelvis were obtained with sagittal and coronal reformatted images also submitted. CT scan is done according to ALARA (As Low As Reasonably Achievable). CONTRAST: None COMPARISON: None. FINDINGS: Unremarkable visualized lung parenchyma. No focal abnormality within the liver,pancreas, spleen, adrenals, or kidneys. Mildly distended gallbladder measuring 7.3 cm and 4.2 cm in the anterior posterior dimension. No wall thickening or radiopaque calculus within. Mild hiatus hernia. Moderate fecal residue in the large bowel loops. There is no obvious bowel wall thickening. Bowel loops are normal in caliber without evidence of obstruction or ileus. The appendix is normal. There is no abnormality within the urinary bladder. Unremarkable reproductive organs. Abdominal and pelvic vessels are patent. No lymphadenopathy. No free fluid. There is no acute osseous abnormality. IMPRESSIONS: Nonspecific distention of the gallbladder. Right upper quadrant ultrasound recommended for further evaluation. /[facility] DICTATED BY: JEANNETTE LUNA MD DATE: 02/12/25817 ELECTRONICALLY SIGNED BY: JEANNETTE LUNA MD DATE: 02/12/[address] [id number] IMAGING REPORT Signed PATIENT: LATONYA JOHNSON MR#: [id number] : 1990 SEX: M AGE: 34 LOCATION: [facility] ORDER 8 STATUS: ADM IN REPORT#: [id number] SERVICE 7 REASON: HYPERBILIRUBINEMIA ORDERING PHYSICIAN: JAYESH ORR MD PROCEDURE: ABDRUQLTD - US ABDOMINAL RUQ\LTD EXAM: US Abdomen, Right Upper Quadrant. CLINICAL HISTORY: HYPERBILIRUBINEMIA TECHNIQUE: Right upper quadrant sonography performed with image documentation. COMPARISON: None provided. FINDINGS: The liver is unremarkable. Gallbladder: The gallbladder is distended and contains sludge. No gallstones are seen. The gallbladder wall measures 0.3 cm and is not thickened. No pericholecystic fluid noted. Common Bile Duct (CBD): The CBD measures 0.32 cm, within normal limits. No biliary ductal dilatation or choledocholithiasis. Pancreas: Pancreas is visualized and appears within normal limits. No masses or cysts seen. Right Kidney: The right kidney measures 12 x 5 x 6 cm, within normal limits. Corticomedullary differentiation is preserved. No hydronephrosis, masses, or calculi identified. IMPRESSION: Gallbladder sludge. No sonographic evidence of acute cholecystitis. /[facility] DICTATED BY: JEANNETTE LUNA MD DATE: 02/12/251050 ELECTRONICALLY SIGNED BY: JEANNETTE LUNA MD DATE: 02/12/251050 Assessment/Plan: DISCHARGE DIAGNOSIS: Sepsis, POA. Source -UTI, resolved Acute urinary tract infection, POA, resolved Mild rhabdomyolysis, POA Lactic acidosis, poa, resolved High aniongap metabolic acidosis with metabolic alkalosis due to dehydration, POA, resolved Acute renal failure, POA Acute hyponatremia, POA, resolved Hyperbilirubinemia, POA to rule out acute cholecystitis Elevated lipase to rule out acute pancreatitis ASSESSMENT/PLAN: Sepsis, POA. Source -UTI, resolved Acute urinary tract infection, POA, resolved He has no symptoms today. Today his WBC is 6.3, vitals are in the normal range. His urine is negative for gonorrhea and Chlamydia. Urine culture is negative. Mild rhabdomyolysis, POA Today his creatine kinase level is decreased from 481 to 284. Advised to repeat creatine kinase level as an outpatient. Lactic acidosis, poa, resolved High aniongap metabolic acidosis with metabolic alkalosis due to dehydration, POA, resolved Today his lactic acid level is 1.2. Serum electrolytes are in the normal range. Anion gap is in the normal range. Acute renal failure, POA His blood work show that BUN is decreased from 68 to 43 and creatinine is decreased from 2.2 to 1.5. Advised to repeat his labs as an outpatient. Acute hyponatremia, POA, resolved Today his sodium level is 138. Advised to repeat his labs as an outpatient. Hyperbilirubinemia, POA to rule out acute cholecystitis Today his blood work show that the bilirubin is decreased from 2.3 to 1.5 Advised to repeat his labs as an outpatient. Elevated lipase to rule out acute pancreatitis Today his lipase is elevated at 267. He has no symptoms. Advised to repeat his labs as an outpatient. Discharge Instructions: Discharge date: 02/13/2025 Medications on discharge: None Discharge instructions: 1) Follow up with primary care physician within 2 to 3 weeks after discharge. 2) Continue all medications as prescribed. Do not discontinue or change doses without consulting your PCP. 3) Gradually resume normal activities as tolerated. 4) Continue a balanced diet. 5) Seek immediate medical attention if you experience chest pain, SOB, or severe headache. 6) Drink plenty of water. 7) Avoid alcohol intake. Discharge to: Home Condition on discharge: Stable Home Medications: No Active Prescriptions or Reported Meds Time spent arranging discharge: 1-30 minutes ATTESTATION BY PHYSICIAN I have seen and examined the patient. I reviewed the documentation, medical decision making, and treatment plan as noted by the resident provider above. I agree with the findings and plan of care. Clovis Ruiz MD, AKSHAY MD Feb 13, 2025 16:49
== END 2025-02-13 18:21 | disposition home or self-care (01) | DRG 871 ==
LOC: EDH 04:10 → EDHIP 04:11 → 3CH 23:14
PROVIDERS: ADMIT Internal Medicine; ATTEND Internal Medicine
DX: A41.9 Sepsis, unspecified organism (principal); K85.90 Acute pancreatitis without necrosis or infection, unspecified; K81.0 Acute cholecystitis; M62.82 Rhabdomyolysis; N17.9 Acute kidney failure, unspecified; N39.0 Urinary tract infection, site not specified; E87.4 Mixed disorder of acid-base balance; E87.1 Hypo-osmolality and hyponatremia; E86.0 Dehydration; K82.8 Other specified diseases of gallbladder; K52.9 Noninfective gastroenteritis and colitis, unspecified; Z79.899 Other long term (current) drug therapy
CPT/HCPCS: 36415; 71045; 74176; 76705; 80048; 80051; 80061; 80076; 80305; 81001; 82150; 82550; 82570; 83036; 83605; 83615; 83690; 83880; 83930; 84100; 84443; 84484; 85025; 85045; 85610; 85730; 86850; 86900; 86901; 87040; 87086; 87426; 87491; 87591; 87804; 93005; 96374; 96375; 99285; G0378; J0696; J1885; J2405; J2470; J2543; J3480; J3490; J7030